=== PATIENT | male | born 1995 | race Caucasian/White ===

== ENCOUNTER 2021-01-28 11:39 | Emergency (ER) | payer BC, SELFPAY ==
--- NOTE | ~2021-01-28 | XR_ITS ---
XR hand LT min 3V 01/28/2021 12:07 INDICATION: Left hand pain PROCEDURE: 3 views left hand COMPARISON: No prior studies for comparison. FINDINGS: Fracture, dislocation or subluxation is not identified. Small bone island of the radial sty loid. The soft tissues appear within normal limits. No foreign bodies are identified. IMPRESSION: 1: NO ACUTE BONE OR JOINT ABNORMALITY IDENTIFIED. Reviewed, dictated and finalized at location B.
--- NOTE | 2021-01-28 11:48 | ED.GENADULT ---
HPI - General Adult General Chief complaint: Extremity Injury, Upper Stated complaint: left wrist pain Time Seen by Provider: 01/28/21 11:48 Source: patient Mode of arrival: ambulatory Limitations: no limitations History of Present Illness HPI narrative: 25-year-old male patient presents to the [facility] with complaints of left hand pain x5 days. Patient states about 5 days ago he was playing a soccer game and thinks that when he went to go for a play he slid and somehow his left hand got caught underneath him. Patient states he has had some bruising on the palm side of the left hand under the thumb and does have a little bit of pain to the left thumb. Patient states he has been trying not to use it as much and denies taking thing for the pain. Patient denies any numbness or tingling. Related Data Home Medications Medication Instructions Recorded Confirmed No Home Medications 01/28/21 01/28/21 Allergies Allergy/AdvReac Type Severity Reaction Status Date / Time No Known Allergies Allergy Verified 01/28/21 12:04 Review of Systems Review of Systems: Narrative: CONSTITUTIONAL: Denies fever, chills, or sweats. EYES: Denies visual changes, redness, or discharge. ENT: Denies rhinorrhea, congestion, sore throat, or otalgia. CARDIOVASCULAR: Denies chest pain, palpitations, or edema. RESPIRATORY: Denies cough or dyspnea. GASTROINTESTINAL: Denies abdominal pain, nausea, vomiting, or diarrhea. GENITOURINARY: Denies dysuria or hematuria. SKIN: Denies rash or itching. MUSCULOSKELETAL: Denies back pain, joint pain, or myalgia. Positive left hand pain NEUROLOGIC: Denies headache, numbness, or weakness. PSYCHIATRIC: Denies anxiety or depression. PMFSH Social History Social History Gender identity (if verbalized by the patient): Male Comments At the time of my signature I agree with nursing past medical history, surgical, social, and family history. There is no relevant family history pertinent to the presenting complaint. Exam Narrative: Exam Narrative: GENERAL: Well-appearing, well-nourished, and in no acute distress. HEAD: Normocephalic, atraumatic. EYES: PERRLA and EOMI. ENT: Nares clear, no rhinorrhea or epistaxis. Mucous membranes moist. NECK: Supple. No lymphadenopathy CHEST: Clear to auscultation. No respiratory distress. HEART: Regular rate and rhythm. No murmur heard. Normal peripheral pulses. ABDOMEN: Soft, nontender, nondistended, normal active bowel sounds. EXTREMITIES: The L hand is without obvious asymmetry or deformity when compared to the R hand. No erythema, atrophy, or obvious deformity. Slight swelling noted to the palm surface under the left thumb with bruising present. No surface trauma, open wounds, nail avulsion, tissue avulsion, partial or complete amputation, subungual hematoma, bony deformity. Normal cascade of fingers. Normal flexion and extension of fingers. FDS and FDP intact aganist restistance. No focal fullness, thobbing pain, swelling of fingertip. No tenderness to palpation (describe exact joint, digit, or location). Pulses and cap refill. SKIN: Warm, dry, no rash. NEURO: No focal deficits. Alert and oriented x3. Course Reevaluation(s) Reevaluation #1: Reevaluated patient after x-ray had resulted. Notified him that there is no acute fractures noted at this time. Discussed with patient that he should elevate it and take Tylenol ibuprofen as needed for swelling and pain. Discussed with him he can continue icing it to help with the swelling. Discussed with patient that we will go ahead and wrap it today with an Marko wrap to help with the swelling and pain. Patient verbalized understanding denies there is no other questions or concerns at this time. Date: 01/28/21 Time: 12:33 Vital Signs Vital signs: Vital Signs Temperature 36.3 C L 01/28/21 11:56 Pulse Rate 66 01/28/21 11:56 Respiratory Rate 16 01/28/21 11:56 Blood Pressure 1
[2021-01-28 11:56] VITALS: BP 122/62; PULSE 66; RESP 16; TEMP 36.3; O2SAT 99
== END 2021-01-28 12:34 | disposition home or self-care (01) ==
PROVIDERS: Emergency Provider Nurse Practitioner Family
DX: S63.92XA Sprain of unspecified part of left wrist and hand, initial encounter (principal); S66.912A Strain of unspecified muscle, fascia and tendon at wrist and hand level, left hand, initial encounter; X58.XXXA Exposure to other specified factors, initial encounter; Y93.66 Activity, soccer
CPT/HCPCS: 73130; 99213; G0463